=== PATIENT | male | born 1965 | race Caucasian/White ===

== ENCOUNTER 2017-09-24 18:42 | Emergency (ER) | payer SELFPAY, OTHER | END 2017-09-25 00:53 | disposition left against medical advice (07) | LOC: E/R 18:42 | DX: Z53.21 Procedure and treatment not carried out due to patient leaving prior to being seen by health care provider (principal) | CPT/HCPCS: 93005 ==

== ENCOUNTER 2018-02-25 15:05 | Emergency (ER) | payer OTHER ==
[2018-02-25 15:27] LABS: ADD MAN DIFF? NO
[2018-02-25 15:30] LABS: WHITE BLOOD COUNT 8.6 10^3/ul (4.8-10.8)
[2018-02-25 15:30] LABS: BASOPHIL # 0.1 10^3/ul (0.0-0.1); BASOPHILS % 0.6 % (0.0-2.0); EOSINOPHILS # 0.1 10^3/ul (0.0-0.5); HEMATOCRIT 42.5 % (42.0-52.0); HEMOGLOBIN 14.6 g/dl (14.0-18.0); LYMPHOCYTES # 2.3 10^3/ul (0.8-2.9); LYMPHOCYTES % 26.8 % (15.0-51.0); MEAN CORPUSCULAR HEMOGLOBIN 30.8 pg (29.0-33.0); MEAN CORPUSCULAR HGB CONC 34.4 g/dl (32.0-37.0); MEAN CORPUSCULAR VOLUME 89.7 fl (82.0-101.0); MEAN PLATELET VOLUME 10.9 fl (7.4-10.4); MONOCYTE # 0.6 10^3/ul (0.3-0.9); MONOCYTES % 7.2 % (0.0-11.0); NEUTROPHIL # 5.5 10^3/ul (1.6-7.5); NEUTROPHILS % 63.8 % (39.0-77.0); PLATELET COUNT 175 10^3/UL (140-415); RED BLOOD COUNT 4.74 10^6/ul (4.70-6.10); RED CELL DISTRIBUTION WIDTH 12.5 % (11.5-14.5)
[2018-02-25] MEDS: SOD CHLORIDE 0.9% 1,000 ML IV (15:30)
[2018-02-25] MEDS: morphine 4 MG/ML VIAL IV (15:30)
[2018-02-25] MEDS: ONDANSETRON 4 MG INJ IV (15:30)
[2018-02-25 15:48] LABS: INR 0.82; PROTIME 11.3 Sec (11.9-14.9); PT RATIO 0.9
[2018-02-25 15:49] LABS: PARTIAL THROMBOPLASTIN TIME 23.2 Sec (25.0-35.0)
[2018-02-25 16:00] LABS: ANION GAP 14 (8-16); BLOOD UREA NITROGEN 11 mg/dl (7-20); CARBON DIOXIDE 24 mmol/L (21-31); CHLORIDE 103 mmol/L (97-110); CREATININE 0.61 mg/dl (0.61-1.24); GLUCOSE 388 mg/dl (70-220); POTASSIUM 3.7 mmol/L (3.5-5.1); SODIUM 137 mmol/L (135-144)
[2018-02-25 16:12] LABS: TROPONIN-I < 0.010 ng/ml (0.000-0.120)
[2018-02-25] MEDS: IOHEXOL 100 ML (16:14)
[2018-02-25] MEDS: IOHEXOL 350MG/ML 50 ML BTL (16:15)
[2018-02-25] MEDS: SOD CHLORIDE 0.9% 100 ML (16:15)
[2018-02-25] MEDS: ASPIRIN 81 MG TAB PO (18:25)
[2018-02-25 21:50] LABS: CREATINE KINASE 28 IU/L (23-200)
[2018-02-25 21:59] LABS: CK INDEX 1.2; CK-MB 0.33 ng/ml (0.0-2.4)
[2018-02-26] MEDS ORDERED: ONDANSETRON 4 MG INJ IV (03:30)
[2018-02-26] MEDS ORDERED: ACETAMINOPHEN 325 MG TAB PO ×2 (03:30→04:00)
[2018-02-26] MEDS ORDERED: NITROGLYCERIN (SL) 0.4 MG TAB SL (04:00)
[2018-02-26] MEDS ORDERED: DOCUSATE SODIUM 100 MG CAP PO (04:00)
[2018-02-26] MEDS ORDERED: LORAZEPAM 0.5 MG TAB PO (04:00)
[2018-02-26] MEDS ORDERED: ONDANSETRON 4 MG TAB PO (04:00)
[2018-02-26] MEDS ORDERED: morphine 2 MG INJ IV (04:00)
[2018-02-26] MEDS ORDERED: ZOLPIDEM 5 MG TAB PO (04:00)
[2018-02-26] MEDS ORDERED: NACL 0.9% 3 ML SYG IV (04:00)
[2018-02-26] MEDS ORDERED: MAGNESIUM HYDROXIDE 30ML CUP PO (04:00)
[2018-02-26] MEDS ORDERED: BISACODYL (EC) 5 MG TAB PO (04:00)
[2018-02-26] MEDS ORDERED: INSULIN GLARGINE HUM REC ANLOG U SC (07:00)
[2018-02-26] MEDS ORDERED: [UNRECOGNIZED DRUG - OTHER] SC (07:00)
[2018-02-26] MEDS ORDERED: ENOXAPARIN 40 MG/0.4 ML SYG SC (09:00)
[2018-02-26] MEDS ORDERED: LISINOPRIL 10 MG TAB PO (09:00)
[2018-02-26] MEDS ORDERED: SPIRONOLACTONE 25 MG TAB PO (09:00)
[2018-02-26] MEDS ORDERED: FAMOTIDINE 20 MG TAB PO (09:00)
[2018-02-26] MEDS ORDERED: METOPROLOL (XL) 100 MG TAB PO (09:00)
[2018-02-26] MEDS ORDERED: TAMSULOSIN (SR) 0.4 MG CAP PO (09:00)
[2018-02-26] MEDS ORDERED: NON-FORMULARY/PATIENT OWN MED (Digoxin* (Digitek*) 0.125 MG) PO (09:00)
[2018-02-26] MEDS ORDERED: ATORVASTATIN 20 MG TAB PO (21:00)
== END 2018-02-26 05:08 | disposition short-term general hospital (02) ==
LOC: E/R 02-26 05:08
DX: I10 Essential (primary) hypertension (principal); R73.9 Hyperglycemia, unspecified; Z95.810 Presence of automatic (implantable) cardiac defibrillator
CPT/HCPCS: 36415; 71045; 71275; 80048; 82550; 82553; 84484; 85025; 85610; 85730; 93005; 96374; 96375; 99285-25

== ENCOUNTER 2018-09-09 20:57 | Emergency (ER) | payer SELFPAY, OTHER | END 2018-09-10 00:45 | disposition left against medical advice (07) | LOC: E/R 20:57 | DX: Z53.21 Procedure and treatment not carried out due to patient leaving prior to being seen by health care provider (principal) | CPT/HCPCS: 93005 ==